=== PATIENT | female | born 2000 | race Hispanic/Latino ===

== ENCOUNTER 2020-06-20 23:54 | Emergency (ER) | payer MEDICAID, OTHER ==
[2020-06-21] MEDS ORDERED: Lidocaine 1% (PF) 30 ML VIAL ONE (00:32)
[2020-06-21] MEDS ORDERED: Boostrix 0.5 ML (Tdap) VIAL ONE (00:32)
== END 2020-06-21 01:03 | disposition home or self-care (01) ==
LOC: ERS 23:54
DX: S61.412A Laceration without foreign body of left hand, initial encounter (principal); W26.0XXA Contact with knife, initial encounter
CPT/HCPCS: 12001; 90471; 90715; J2001

== ENCOUNTER 2020-07-01 16:29 | Emergency (ER) | payer OTHER | END 2020-07-01 16:39 | disposition home or self-care (01) | LOC: ERS 16:29 | DX: S61.412D Laceration without foreign body of left hand, subsequent encounter (principal) ==